=== PATIENT | female | born 1990 | race Caucasian/White ===

== ENCOUNTER 2016-08-22 19:02 | Emergency (ER) | payer SELFPAY ==
--- NOTE | 2016-08-22 19:06 | PDOC ---
History of Present Illness - General Chief Complaint: Pain Stated Complaint: ABD SHARP PAIN Time Seen by Provider: 08/22/16 19:04 History Source: Patient Exam Limitations: No Limitations - History of Present Illness Initial Comments: 08/22/16 19:43 this is a 26 her female comes in complaining of intermittent abdominal pain times several months. Patient has history of similar pain multiple times in the past since the of her child 3 months ago. Patient is breast-feeding and has not gotten a period since the child was born. Patient said pain is very sharp in nature last a few seconds and spontaneously resolves. Patient denies any pain at this time. Patient denies any nausea vomiting, diarrhea, fever, chills or any other complaints. PAST MEDICAL HISTORY: no significant history PAST SURGICAL HISTORY: no significant history FAMILY HISTORY: no pertinant history SOCIAL HISTORY: Pt lives with family and is employed. MEDICATIONS: reviewed ALLERGIES: As per nursing notes Review of Systems General: No fevers or chills, no weakness, no weight loss HEENT: No change in vision. No sore throat,. No ear pain CardioVascular: No chest pain or shortness of breath Respiratory:No cough, or wheezing. Gastrointestinal: no nausea, vomitting, diarrhea or constipation, No rectal bleeding Genitourinary: No dysuria, hematuria, or frequency Musculoskeletal: No joint or muscle pain or swelling Neurologic: No headache, vertigo, dizziness or loss of consciousness Psychiatric: nor depression Skin: No rashes or easy bruising Endocrine: no increased thirst or abnormal weight change Allergic: no skin or latex allergy All other systems reviewed and normal GENERAL: The patient is awake, alert, and fully oriented, in no acute distress. HEAD: Normal with no signs of trauma. EYES: Pupils equal, round and reactive to light, extraocular movements intact, sclera anicteric, conjunctiva clear. ABDOMEN:There is no tenderness on palpation of the abdomen or pelvis., Bowel sounds are normal exam is normal EXTREMITIES: Normal range of motion, no edema. NEUROLOGICAL: Normal speech, normal gait. PSYCH: Normal mood, normal affect. SKIN: Warm, Dry, normal turgor, no rashes or lesions noted. Assessment and plan: This is a 26-year-old female who comes in complaining of several months of intermittent brief sharp abdominal pain. Patient has not followed up with her OB because she lost her Medicaid and also moved out of the area. Patient is not had any evaluation since the of her child. Patient has Medicare pending I told her to call the clinic here at the hospital and let them know her medication list pending see her and evaluate her. In the meantime she was told to take Tylenol or Motrin for the pain Past History - Past Medical History Allergies/Adverse Reactions: Allergies Allergy/AdvReac Type Severity Reaction Status Date / Time No Known Allergies Allergy Verified 08/22/16 19:03 Home Medications: Ambulatory Orders NK [No Known Home Medication] 08/22/16 *DC/Admit/Observation/Transfer Diagnosis at time of Disposition: Pelvic pain - Discharge Dispostion Disposition: HOME Condition at time of disposition: Improved Admit: No - Referrals Referrals: Gerhard Penaloza MD [Staff Physician] - - Patient Instructions Additional Instructions: Tylenol or Motrin as needed for pain. Call Dr. Romero office and make an appointment to follow-up for his symptoms U can get an appointment. Return to the emergency department immediately with ANY new, persistent or worsening symptoms. Continue any medications as previously prescribed by your physician. You should follow up with your primary doctor as soon as possible regarding today's emergency department visit. . Please make sure your doctor reviews the results of your emergency evaluation. Thank you for coming to the Emergency Department today for your care. It was a pleasure to see you today. Please note that your evaluation is INCOMPLETE until you follow-up with your doctor.
[2016-08-22 19:14] LABS: URINE APPEARANCE Clear; URINE BILIRUBIN Negative (NEGATIVE); URINE BLOOD Negative (NEGATIVE); URINE GLUCOSE (UA) Negative (NEGATIVE); URINE KETONE Negative (NEGATIVE); URINE LEUK ESTERASE Negative (NEGATIVE); URINE NITRITE Negative (NEGATIVE); URINE PROTEIN Negative (NEGATIVE); URINE UROBILINOGEN 0.2 E.U/dl (0.2-1.0)
[2016-08-22 19:15] LABS: URINE COLOR AMBER
[2016-08-22 19:17] VITALS: BP 107/73; PULSE 98; TEMP 97.4; BMI 26.3
== END 2016-08-22 19:46 | disposition home or self-care (01) ==
LOC: FER 19:02
DX: R10.2 Pelvic and perineal pain (principal)
CPT/HCPCS: 81003; 84703; 99281-25